=== PATIENT | female | born 2000 | race Caucasian/White ===

== ENCOUNTER 2025-01-05 08:52 | Emergency (ER) | payer OTHER ==
[~2025-01-05] VITALS: Ht 157.5 cm; Wt 88.5 kg
[2025-01-05] MEDS ORDERED: LORAZEPAM 0.5 MG TABLET ONE (09:08)
[2025-01-05] MEDS: LORAZEPAM 1 MG TABLET PO ONE (09:10)
[2025-01-05 09:27] VITALS: BP 125/70; TEMP 98.5; O2SAT 100
== END 2025-01-05 09:26 | disposition home or self-care (01) ==
LOC: ER 08:55
DX: F41.1 Generalized anxiety disorder (principal)